=== PATIENT | female | born 2000 | race Caucasian/White ===

== ENCOUNTER 2018-11-07 10:48 | Emergency (ER) | payer MEDICAID ==
[2018-11-07 10:55] VITALS: BP 106/64
--- NOTE | 2018-11-07 11:24 | EDPHY ---
H & P Stated Complaint: Cough~1mo; ; mom also sick Time Seen by Provider: 11/07/18 11:21 HPI/ROS: HPI: This is a 18-year-old female who presents with Chief Complaint: Cough~1mo; ; mom also sick Location: Chest Quality: Cough Duration: 1 month Signs and Symptoms: no fever, no nausea, no vomiting, no diarrhea, no urinary symptoms, no chest pain, no shortness of breath, no wheezing, + nonproductive cough, no sore throat, no neck stiffness, no joint pain, no swollen glands, no ear pain, no rash, + wheezing, + nasal congestion Timing: Worsening Severity: Moderate Context: Patient is a , visiting family from out of town, presents with 4 week history of nasal congestion, sinus pressure, nonproductive cough that is accompanied by faint wheezing at night. Patient does not have a history of lung disease. She has not tried any [id number] symptoms. Mom has also been sick. Patient drove from out of [facility] to [place]. Denies any calf pain, shortness of breath. Modifying Factors: None Comment: ROS: A comprehensive 10 system review of systems is otherwise negative aside from elements mentioned in the history of present illness. MEDICAL/SURGICAL/SOCIAL HISTORY: Medical history: Generally healthy. Does not take any regular medications. Surgical history: Denies Social history: Never smoked. Family history noncontributory. CONSTITUTIONAL: Ill but nontoxic-appearing young adult white female, awake and alert, no obvious distress HEENT: Atraumatic and normocephalic, PERRL, EOMI. Nares patent; green rhinorrhea; moderate nasal mucosal edema; moderate reproducible maxillary bilateral sinus tenderness. Tympanic membranes clear. Oropharynx clear, no exudate and moist pink mucosa. Airway patent. No lymphadenopathy. No meningismus. Cardiovascular: Normal S1/S2, regular rate, regular rhythm, without murmur rub or gallop. PULMONARY/CHEST: Symmetrical and nontender. Clear to auscultation bilaterally. Good air movement. No accessory muscle usage. ABDOMEN: Soft, nondistended, nontender, no rebound, no guarding, no peritoneal signs, no masses or organomegaly. No CVAT. EXTREMITIES: 2/2 pulses, strength 5/5, no deformities, no clubbing, no cyanosis or edema. NEUROLOGICAL: no focal neuro deficits. GCS 15. SKIN: Warm and dry, no erythema. no rash. Good capillary refill. Source: Patient Exam Limitations: No limitations - Personal History EDC: 05/12/19 Current Tetanus Diphtheria and Acellular Pertussis (TDAP): Yes - Medical/Surgical History Other PMH: - Social History Smoking Status: Never smoked Constitutional: Initial Vital Signs Temperature (C) 36.8 C 11/07/18 10:51 Heart Rate 97 11/07/18 10:51 Respiratory Rate 18 11/07/18 10:51 Blood Pressure 106/64 11/07/18 10:51 O2 Sat (%) 98 11/07/18 10:51 O2 Delivery Mode Room Air Allergies/Adverse Reactions: No Known Allergies Allergy (Unverified 11/07/18 10:51) Home Medications: Medication Instructions Recorded Amox Tr/K Clav (Augmentin) 500 mg PO Q8 7 Days tab 11/07/18 [Augmentin 500/125 MG TAB (*)] Budesonide 1 - 2 spray NS DAILY #1 spray.pump 11/07/18 Ondansetron Odt [Zofran Odt 4 mg 11/07/18 (*)] Medical Decision Making ED Course/Re-evaluation: Vital signs reviewed and stable upon arrival. No systemic signs. Patient has no abdominal pain or vaginal bleeding to indicate ultrasound Patient's symptoms have been greater than 10-14 days and will be treated with antibiotics at this point Patient will be given Augmentin and budesonide nasal spray She is to follow-up with OBGYN when she returns home. This patient was seen under the supervision of my secondary supervising physician. I evaluated care for this patient independently. Discussed this patient with Dr. Josue who did not see the patient. Differential Diagnosis: Differential diagnosis includes but is not limited to influenza, sinusitis, bronchitis, pneumonia, sepsis, pulmonary embolism. Departure - Departure Disposition: Home, Routine, Self-Care Clinical Impression: Second trimester , Lower respiratory tract infection Condition: Good Instructions: (ED), Acute Bronchitis (ED), Sinusitis (ED) Additional Instructions: Consume a minimum of 8-10 glasses of water or electrolyte fluid replacement drinks that include Gatorade, Powerade, Pedialyte. Eat a bland diet for the next 48 hours and then slowly advance as tolerated. Take antibiotic as directed. Do not skip a dose. Use nasal spray 1-2 times daily. Follow up with OBGYN once you return home. Referrals: [facility],. [Clinic] - Follow Up Only If Needed Prescriptions: Amox Tr/K Clav (Augmentin) [Augmentin 500/125 MG TAB (*)] 500 mg PO Q8 7 Days tab Budesonide 1 - 2 spray NS DAILY #1 spray.pump
== END 2018-11-07 12:28 | disposition home or self-care (01) ==
DX: J22 Unspecified acute lower respiratory infection (principal); Z3A.20 20 weeks gestation of pregnancy